=== PATIENT | female | born 1975 | race Caucasian/White ===

== ENCOUNTER 2019-10-08 17:23 | Emergency (ER) | payer OTHER ==
[~2019-10-08] VITALS: Ht 167.6 cm; Wt 116.0 kg
--- NOTE | 2019-10-08 17:28 | NUR ---
IN RESTROOM WHEN CALLED FOR TRIAGE
--- NOTE | 2019-10-08 17:55 | NUR ---
THIS IS A 44 YO F W/ C/O DIZZINESS/INTERMITTENT NAUSEA SINCE AUGUST. AFTER TAKING 3RD DOSE OF STEROID TODAY PRESCRIBED BY UC, SUDDEN ONSET CHEST HEAVINESS WHICH HAS NOW RESOLVED. UC INSTRUCTED HER TO COME HERE. REPORTS DULL HEADACHES. DENIES SOB/ABD PAIN. VS STABLE. RESP EVEN AND UNLABORED. CALL LIGHT IN REACH. AWAITING ED EVAL.
[2019-10-08 18:32] VITALS: BP 106/62
--- NOTE | 2019-10-08 18:37 | NUR ---
PT UPDATED IN POC TO MONITOR. NO ORDERS AT THIS TIME.
--- NOTE | 2019-10-08 19:02 | NUR ---
PT DENIES DIZZINESS AND CP AT THIS TIME. WILL UPDATE .
--- NOTE | 2019-10-08 19:27 | NUR ---
PT AMBULATED TO THE BR W/ A STEADY GAIT.
--- NOTE | 2019-10-08 19:33 | NUR ---
Patient given discharge instructions and they have confirmed that they understand the instructions. Patient ambulatory with steady gait.
== END 2019-10-08 19:34 | disposition home or self-care (01) ==
LOC: ED 18:40
DX: H81.12 Benign paroxysmal vertigo, left ear (principal); R00.2 Palpitations; I25.2 Old myocardial infarction
CPT/HCPCS: 93005; 99283

== ENCOUNTER 2020-12-12 15:05 | Emergency (ER) | payer BC, OTHER ==
[~2020-12-12] VITALS: Ht 167.6 cm; Wt 121.6 kg
--- NOTE | 2020-12-12 15:39 | NUR ---
cc of chest tightness/pressue since last night 01/11. pt states it came on last night and she tried breast feeding and it went away and then came back this am. does not radiate. pt is 5 days post . and son at bedside.
[2020-12-12] MEDS ORDERED: MAALOX/HYOSCYAMINE/LIDOCAINE 45 ML BTL ONE (15:41)
[2020-12-12] MEDS ORDERED: MAALOX/HYOSCYAMINE/LIDOCAINE 45 ML BTL PO ONE (16:00)
[2020-12-12 16:05] LABS: BASOPHILS % (AUTO) 1 % (0-1); EOSINOPHILS % (AUTO) 1 % (1-7); LYMPHOCYTES % (AUTO) 30 % (22-44); MEAN CORPUSCULAR HEMOGLOBIN 30.7 pg (27.0-34.8); MEAN CORPUSCULAR HGB CONC 33.4 g/dL (32.4-35.8); MEAN PLATELET VOLUME 8.6 fL (7.4-10.4); MONOCYTES % (AUTO) 8 % (2-9); NEUTROPHILS % (AUTO) 61 % (42-75); PLATELET COUNT 304 x10^3/uL (130-400); RED BLOOD COUNT 3.15 x10^6/uL (3.82-5.3); RED CELL DISTRIBUTION WIDTH 13.4 % (9.6-15.2)
[2020-12-12 16:06] LABS: MD NO
[2020-12-12 16:14] LABS: ALBUMIN 2.7 g/dL (3.4-5.0); ANION GAP 4 mmol/L (5-15); CALCIUM 8.5 mg/dL (8.5-10.1); CHLORIDE 110 mmol/L (98-107); CREATININE 0.67 mg/dL (0.55-1.02)
--- NOTE | 2020-12-12 16:17 | NUR ---
PT REPORTS NO CHANGE IN RELIEF AFTER GI COCKTAIL.
[2020-12-12 16:18] LABS: TROPONIN I < 0.015 ng/mL (0.000-0.045)
--- NOTE | 2020-12-12 17:30 | NUR ---
PT TO IMAGING
[2020-12-12] MEDS ORDERED: OMNIPAQUE 350 MG/ML, 75ML BOTTLE ONE (17:34)
[2020-12-12] MEDS ORDERED: FAMOTIDINE 20 MG/2 ML ONE (18:17)
[2020-12-12] MEDS ORDERED: DIPHENHYDRAMINE 50 MG/ML, 1ML ONE (18:17)
--- NOTE | 2020-12-12 18:24 | NUR ---
DURING RE-ASSESSMENT, PT NOTED TO BE SCRATCHING AT NECK. ONE HIVE ON EACH SIDE OF NECK NOTED. ERP ESTEPHANIA ASKED TO LOOK AT PT, ONE MORE HIVE FOUND ON ABD. 15 MIN LATER HIVES HAVE BECOME LARGER. SKIN AROUND RED AND PT STILL SCRATCHING. VERBAL ORDERS GIVEN FOR 20 MG IV PEPCID AND 25 MG IV BENADRYL. VERBAL ORDERS REPEATED.
[2020-12-12] MEDS ORDERED: FAMOTIDINE 20 MG/2 ML IVPush ONE (18:30)
[2020-12-12] MEDS ORDERED: DIPHENHYDRAMINE 50 MG/ML, 1ML IVPush ONE (18:30)
[2020-12-12 19:06] VITALS: BP 132/74
--- NOTE | 2020-12-12 19:07 | NUR ---
Patient/Caregiver given discharge instructions and they have confirmed that they understand the instructions. Patient ambulatory with steady gait.
== END 2020-12-12 19:09 | disposition home or self-care (01) ==
LOC: ED 18:00
DX: R07.89 Other chest pain (principal); R06.02 Shortness of breath
CPT/HCPCS: 36415; 71045; 71275; 80048; 82040; 84484; 85025; 85379; 93005; 96374; 96375; 99285; J1200; Q9967